=== PATIENT | female | born 1980 | race Two or more races ===

== ENCOUNTER 2017-03-19 06:38 | Inpatient (IN) | payer SELFPAY ==
[~2017-03-19] VITALS: Ht 152.4 cm; Wt 56.1 kg
[2017-03-19 07:35] LABS: Basophils # (auto) 0 uL; Basophils % (auto) 0.2 % (0.0-2.0); CONDITION Y; Eosinophils # (auto) 0.1 uL; Eosinophils % (auto) 0.4 % (0.0-7.0); Hematocrit 40.1 % (36.0-46.0); Hemoglobin 13.6 g/dL (12.2-16.2); Lymphocytes # (auto) 2.3 uL; Lymphocytes % (auto) 20.4 % (10.0-50.0); Mean Corpuscular Hemoglobin 30.5 pg (28.0-32.0); Mean Corpuscular Hgb Conc. 33.8 g/dL (32.0-36.0); Mean Corpuscular Volume 90.3 fL (80.0-100.0); Mean Platelet Volume 7.4 fL (7.4-10.4); Monocytes # (auto) 0.6 uL; Monocytes % (auto) 5.2 % (0.0-12.0); Neutrophils # (auto) 8.4 uL; Neutrophils % (auto) 73.8 % (37.0-80.0); Platelet Count (auto) 426 10^3/uL (140-450); Red Cell Distribution Width 12.9 % (11.6-16.0); White Blood Cell 11.3 10^3/uL (4.4-10.8)
[2017-03-19 08:04] LABS: Albumin 3.6 g/dL (3.4-5.0); Calcium 8.8 mg/dL (8.5-10.1); Potassium 3.8 mmol/L (3.5-5.1)
[2017-03-19 08:07] LABS: Bilirubin, Total 0.3 mg/dL (0.2-1.0); Total Protein 8.4 g/dL (6.4-8.2)
[2017-03-19] MEDS ORDERED: LACT. RINGERS/OXYTOCIN 20UNITS 1,000 ML IV SCH (10:38)
[2017-03-19 11:50] LABS: INR 0.98 (0.9-1.15); Partial Thromboplastin Time 27.3 sec (22.64-33.71); Prothrombin Time 10.7 sec (9.37-12.3)
[2017-03-19] MEDS ORDERED: ceFAZolin 1GM/50ML D5W 50 ML IV ONE (13:03)
[2017-03-19] MEDS ORDERED: MIDAZOLAM HCL 1MG/1ML-2 ML VIAL ONE (13:24)
[2017-03-19] MEDS ORDERED: fentaNYL CITRATE 100 MCG/2 ML VL ONE (13:24)
[2017-03-19] MEDS ORDERED: PROPOFOL 10 MG/ML 20 ML IV ONE (13:30)
[2017-03-19] MEDS ORDERED: METOCLOPRAMIDE HCL 5MG/ml INJ 2ml VIAL IV ONE (13:30)
[2017-03-19] MEDS: LACTATED RINGER'S 1,000 ML IV SCH ×2 (13:59→20:39)
[2017-03-19] MEDS ORDERED: ONDANSETRON HCL 4 MG/2 ML VIAL IV PRN (14:00)
[2017-03-19] MEDS ORDERED: MORPHINE SULF INJ 2 MG/ML SYRINGE 1ML IV PRN (14:30)
[2017-03-19 16:30] VITALS: BP 104/55
[2017-03-19 22:00] VITALS: BP 98/53
[2017-03-20] MEDS ORDERED: ONDANSETRON HCL 4 MG/2 ML VIAL IV ONE (13:30)
== END 2017-03-20 00:20 | disposition home or self-care (01) | DRG 770 ==
LOC: ER 06:39 → SUR 06:40 → CENTRAL 06:41
PROVIDERS: ADMIT Specialist; ATTEND Specialist
PROC: 10D17ZZ Extraction of Products of Conception, Retained, Via Natural or Artificial Opening (ICD-10-PCS; principal; 2017-03-19 13:30)
DX: O03.4 Incomplete spontaneous abortion without complication (principal); Z3A.08 8 weeks gestation of pregnancy
CPT/HCPCS: 36415; 76801; 76817; 80053; 84702; 85025; 85610; 85730; 86850; 86900; 86901; J0690; J2250; J2405; J2704